=== PATIENT | male | born 1990 | race Caucasian/White ===

== ENCOUNTER 2022-07-16 09:26 | Emergency (ER) | payer OTHER, SELFPAY ==
[2022-07-16 09:27] VITALS: BP 116/78; PULSE 99; RESP 24; TEMP 36; O2SAT 100; BMI 35.4
[2022-07-16 09:32] VITALS: BP 116/78; PULSE 94; RESP 18; O2SAT 100
--- NOTE | 2022-07-16 09:52 | RAD_ITS ---
STUDY: X-RAY CHEST REASON FOR EXAM: Male, 31 years old. Sob TECHNIQUE: PA and lateral views of the chest. COMPARISON: None. FINDINGS: The lungs are clear and expanded. There is no demonstrated pleural abnormality. Normal size heart. Normal mediastinum and kiara. Normal visualized pulmonary arteries. Normal visualized aortic arch and descending thoracic aorta. Normal visualized thoracic spine. Normal visualized ribs, clavicles, and shoulders. There is no demonstrated abnormality of the visualized soft tissue structures of the upper abdomen. RAD/Chest PA and Lateral IMPRESSION: Normal x-ray examination of the chest. Electronically Signed: Alexandr Tavares MD at 10:56 EDT ,
[2022-07-16 10:07] LABS: Absolute Lymphocyte Count 2.87 X10^3/uL (0.83-4.51); Absolute Neutrophil Count 4.8 X10^3/uL (2.0-7.7); Basophil% 1.1 % (0-1); Eosinophil# 0.09 X10^3/uL; Hematocrit 50.7 % (40-54); Hemoglobin 16.3 g/dL (13.0-16.5); Lymphocyte # 2.87 X10^3/ul (0.83-4.51); Lymphocyte % 32.1 % (19-41); Mean Corp Hgb Conc 32.1 g/dL (32-36); Mean Corpuscular Hgb 28.6 pg (27.0-32.0); Mean Corpuscular Volume 88.9 fL (80-94); Mean Platelet Vol. 9.4 fl (6.2-12.0); Monocyte# 0.98 X10^3/uL; NRBC Flagged by Analyzer 0 % (0-5); Neutrophil # 4.78 X10^3/uL (2.7-7.7); Neutrophil % 53.6 % (47-70); Platelet Count 412 K/mm3 (150-450); RBC Distribution Width CV 11.9 % (11.6-14.6); RBC Distribution Width SD 39.2 fl (35.1-43.9); White Blood Count 8.9 K/mm3 (4.4-11.0)
[2022-07-16 10:23] LABS: Anion Gap 14 (5-15); BUN 9 mg/dL (7-18); BUN/Creat Ratio 8.2 RATIO (10-20); Calcium,Total 9.4 mg/dL (8.5-10.1); Chloride 102 mmol/L (98-107); EST Glomerular Filtration Rate 83 mL/min (>60); Est Glom Filt Rate - Afr Amer 101 mL/min (>60); Estimated Creatinine Clearance 101.39 ml/min; Glucose 88 mg/dL (74-106); Potassium 3.2 mmol/L (3.5-5.1); Sodium Level 139 mmol/L (136-145)
[2022-07-16 10:26] VITALS: BP 115/84; PULSE 84; RESP 16; O2SAT 100
--- NOTE | 2022-07-16 10:28 | EDS_ITS ---
HPI History of Present Illness Chief Complaint: Chest Pain Informant: patient Narrative Narrative: Patient is a 31-year-old male with history of anxiety (on paroxetine and alprazolam) since the murder of his brother a couple years ago. Patient was driving to work from [employer] today when he felt like he was developing a panic attack. He states he is on the phone with his mom for about 23 minutes. His mother felt that he was gasping for air and patient started having tingling in his hands. He states his hands turned red. His mother was also concerned because the patient could feel his heart beating and told him to chute puller and call 911. Patient states has had panic attacks in the past and this felt like 1. He also notes that he did not eat yesterday or today. Denies any family history of heart problems at a young age. Denies any difficulty breathing. States he is feeling better now. Notes he had a lot of pressure at work and there is been to recent firings and patient is concerned that he will be fired as well. Patient denies any other complaints at this time. Denies any swelling of his legs. Denies any recent travel immobilization. Is not on any hormonal therapy. Denies any history of DVT or PE. [facility] Medical History (Updated 07/16/22 @ 11:[address] Brigida Green DO) Anxiety Panic attack Allergy/AdvReac Type Severity Reaction Status Date / Time bee venom protein (honey bee) Allergy Hives Verified 07/16/22 09:26 [bee sting] Social History Smoking Status: Never smoker [facility] ED Constitutional Constitutional ED: Denies chills or fever(s) Eyes Eyes: Denies blurry vision or change in vision ENT ENT ED: Denies sore throat Cardiovascular Cardiovascular: Reports as per HPI and racing heartbeat; Denies chest pain Respiratory/Chest Respiratory/Chest: Reports dyspnea; Denies cough Gastrointestinal Gastrointestinal: Denies abdominal pain, nausea or vomiting Musculoskeletal Musculoskeletal: Denies arthralgias or myalgias Neurologic Neurologic: Reports paresthesias Psychiatric Psychiatric: Reports anxiety; Denies depression, suicidal ideation or suicidal thoughts Hematologic/Lymphatic Hematologic/Lymphatic: Denies easy bleeding or easy bruising EXAM Physical Exam Const Vital Signs: 07/16/22 09:27 07/16/22 09:32 07/16/22 09:32 Temperature 96.8 F L Temperature Source Temporal Pulse Rate 99 94 Respiratory Rate 24 H 18 Respiratory Effort Normal Blood Pressure 116/78 116/78 Blood Pressure Mean 90 90 Pulse Ox 100 100 Oxygen Delivery Method Room Air Room Air 07/16/22 10:26 Temperature Temperature Source Pulse Rate 84 Respiratory Rate 16 Respiratory Effort Blood Pressure 115/84 H Blood Pressure Mean 94 Pulse Ox 100 Oxygen Delivery Method Room Air Positive well nourished and well developed General Appearance ED: well developed and NAD HEENT Reports moist mucous membranes normocephalic and atraumatic Eyes PERRL and EOMs intact bilaterally Neck supple and no JVD Chest Wall inspection of chest normal and palpation of chest normal Resp normal respiratory effort and clear to auscultation bilaterally Cardio regular rate, regular rhythm and no murmurs GI normal to inspection, nondistended, normoactive bowel sounds, soft to palpation and non-tender Extremity normal to inspection General Extremety ED: Negative for edema or pulses abnormal General Extremity: Negative for edema or pulses abnormal Neuro oriented x3 Sensorium / Orientation: awake and alert Motor Exam: Negative for general weakness Psych mental status grossly normal Mood & Affect: anxious; Negative for depressed Skin no rashes or lesions noted and no wounds Skin Narrative: mild plethora of the hands bilaterally MDM MDM MDM Narrative Medical decision making narrative: Patient is evaluated for panic attack. Patient has what he describes as a pain attack while driving. He came to the ER because his mother states that he had gasping breath sounds and could feel his heartbeat so he should be evaluated. Patient admits to not taking his alprazolam last night or this morning. He said increased rest with work. He does not have any chest pain. I do not think this is ACS. EKG does not show any arrhythmia or signs of ischemia. Patient is PE RC negative I do not suspect a pulmonary emboli as a cause of his symptoms. I do not think he needs further work-up for this. I do not think this is a cardiac equivalent. I did check a CBC as he has plethora of his hands to make sure he does not have polycythemia. Chest x-ray does not show any pneumothorax. He is clear breath sounds bilaterally. Chest x-ray interpreted myself as well as radiology is largely normal. BMP checked to look for any significant electrolyte abnormalities. At this is largely normal. He is mildly hypokalemic with a potassium of 3.2 and is given a dose of oral potassium in the ER. He is given oral lorazepam in the emergency room as well. On repeat evaluation is feeling better. Patient remains hemodynamically stable in the ER. He has no further symptoms. Will be given a work note for today. Encouraged follow-up with his primary care doctor and take his regular psychiatric medications. Counseled if he has worsening symptoms, recurrent symptoms or further concerns to follow-up either with his primary care doctor return to his closest emergency room. Patient verbalizes agreement understand this plan. Discharged home in stable condition. Lab Data Labs: Laboratory Results - last 24 hr 07/16/22 07/16/22 09:30 09:30 WBC 8.9 RBC 5.70 Hgb 16.3 Hct 50.7 MCV 88.9 MCH 28.6 MCHC 32.1 RDW Std Deviation 39.2 RDW Coeff of Robinson 11.9 Plt Count 412 MPV 9.4 Immature Gran % (Auto) 1.200 H Neut % (Auto) 53.6 Lymph % (Auto) 32.1 [place] % (Auto) 11.0 H Eos % (Auto) 1.0 Baso % (Auto) 1.1 H Absolute Neuts (auto) 4.8 Absolute Lymphs (auto) 2.87 Nucleated RBC % 0 Sodium 139 Potassium 3.2 L Chloride 102 Carbon Dioxide 23.0 Anion Gap 14 BUN 9 Creatinine 1.10 Estim Creat Clear Calc 101.39 Est GFR (MDRD) Af Amer 101 Est GFR (MDRD) Non-Af 83 BUN/Creatinine Ratio 8.2 L Glucose 88 Calcium 9.4 Magnesium 2.0 Radiography Diagnostic Testing: Clinical Impression(s) from Imaging Studies Chest X-Ray 07/16/22 09:52 IMPRESSION: Normal x-ray examination of the chest. Electronically Signed: Alexandr Tavares MD at 10:56 EDT , Rhythm Strip Rhythm Strip: Sinus Rhythm Rate: 91 Ectopy: None EKG Initial EKG: Attestation: I personally reviewed and interpreted this EKG as follows: Interpretation: Sinus Rhythm Comments: Normal sinus rhythm at a rate of 91 bpm Normal axis Normal intervals Normal ST segments Differential Diagnosis Chest pain/SOB: pulmonary embolism Reason(s) PE less likely: Positive for PERC negative, ACS ACS: Positive for EKG without ischemia and history not suggestive of ischemia pain and pneumothorax Reason(s) pneumothorax less likely: Positive for bilateral breath sounds and [employer] withhout PTX Discharge Plan Triage Chief Complaint: Chest Pain ED Provider: Brigida Green Dx/Rx/DC Orders Clinical Impression: Panic attack, Hypokalemia Instructions: ED Hypokalemia, ED Panic Attack Stand Alone Forms: Work / School Excuse Primary Care Provider: Care Physician,No Primary Referrals: Care Physician,No Primary [Primary Care Provider] - Activity Restrictions/Additional Instructions: Your work-up was largely normal. Potassium was mildly low. You are given a one-time dose of potassium supplement. Please eat potassium rich foods such as bananas. Follow-up with your primary care doctor. Please take all of your regular medications as prescribed. I do not think you had any type of cardiac event or arrhythmia today. If you have worsening or recurrent symptoms please follow-up with your primary care doctor or return to the closest emergency room. Disposition Disposition: Home, Self Care
[2022-07-16] MEDS: LORazepam 0.5 MG Tablet PO (10:57)
[2022-07-16] MEDS: Potassium Chloride Oral Tablet 20 MEQ PO (10:57)
[2022-07-16 11:52] VITALS: BP 115/75; PULSE 87; RESP 115; O2SAT 96
== END 2022-07-16 11:53 | disposition home or self-care (01) ==
PROVIDERS: Emergency Provider Emergency Medicine; Visit Provider Emergency Medicine
DX: F41.0 Panic disorder [episodic paroxysmal anxiety] (principal); E87.6 Hypokalemia
CPT/HCPCS: 71046; 80048; 83735; 85025; 93005; 99285

== ENCOUNTER 2022-09-20 19:48 | Emergency (ER) | payer OTHER, SELFPAY ==
[2022-09-20 19:50] VITALS: BP 135/95; PULSE 121; RESP 18; TEMP 36.4; O2SAT 97; BMI 34.2
--- NOTE | 2022-09-20 20:04 | CT_ITS ---
EXAM: CT HEAD WITHOUT INTRAVENOUS CONTRAST CLINICAL INDICATION: seizure TECHNIQUE: Multiple axial images were obtained of the head without intravenous contrast. This CT exam was performed using one or more of the following dose reduction techniques: automated exposure control, adjustment of the mA and/or kV according to patient size, and/or use of iterative reconstruction technique. RADIATION DOSE: CTDIvol = 44.99 mGy, DLP = 762.36 mGy-cm COMPARISON: No relevant prior studies available. FINDINGS: BRAIN AND EXTRA-AXIAL SPACES: Unremarkable. No intra- or extra-axial hemorrhage. No evidence of acute infarct. No intracranial mass or mass effect. There is preservation of the puri/white matter interface. Posterior fossa structures are unremarkable. Ventricles are appropriate for age. No hydrocephalus. Basal cisterns are patent. BONES/JOINTS: Unremarkable. No discrete lytic or blastic abnormalities. SINUSES: Unremarkable as visualized. Clear. MASTOID AIR CELLS: Unremarkable. Clear. ORBITS: Visualized globes, extraocular muscles, optic nerves and retrobulbar fat appear unremarkable. CT/Brain/Head without Contrast IMPRESSION: Negative head/brain CT without intravenous contrast. Electronically Signed: Jose Serna MD at 20:52 EDT ,
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
[2022-09-20 20:48] LABS: Absolute Lymphocyte Count 3.29 X10^3/uL (0.83-4.51); Absolute Neutrophil Count 5.2 X10^3/uL (2.0-7.7); Hematocrit 46.3 % (40-54); Hemoglobin 14.9 g/dL (13.0-16.5); Lymphocyte # 3.29 X10^3/ul (0.83-4.51); Lymphocyte % 32.6 % (19-41); Mean Corp Hgb Conc 32.2 g/dL (32-36); Mean Corpuscular Hgb 28.2 pg (27.0-32.0); Mean Corpuscular Volume 87.5 fL (80-94); Mean Platelet Vol. 9.3 fl (6.2-12.0); Monocyte# 1.17 X10^3/uL; Monocyte% 11.6 % (0-10); NRBC Flagged by Analyzer 0 % (0-5); Neutrophil # 5.22 X10^3/uL (2.7-7.7); Neutrophil % 51.6 % (47-70); Platelet Count 473 K/mm3 (150-450); RBC Distribution Width CV 12.1 % (11.6-14.6); RBC Distribution Width SD 39.1 fl (35.1-43.9); Red Blood Count 5.29 M/mm3 (4.6-6.2); White Blood Count 10.1 K/mm3 (4.4-11.0)
[2022-09-20 21:06] LABS: Anion Gap 9 (5-15); BUN 9 mg/dL (7-18); BUN/Creat Ratio 10.9 RATIO (10-20); Calcium,Total 9.5 mg/dL (8.5-10.1); Chloride 104 mmol/L (98-107); Creatinine, Serum 0.83 mg/dL (0.70-1.30); EST Glomerular Filtration Rate 115 mL/min (>60); Est Glom Filt Rate - Afr Amer 140 mL/min (>60); Estimated Creatinine Clearance 134.37 ml/min; Glucose 101 mg/dL (74-106); Potassium 3.5 mmol/L (3.5-5.1); Sodium Level 138 mmol/L (136-145)
[2022-09-20 21:14] LABS: Amphetamine Urine VISTA NEGATIVE (<1000 ng/mL); Barbiturate Urine VISTA NEGATIVE (< 200 ng/mL); Benzodiazepine Urine VISTA POSITIVE (< 200 ng/mL); Cocaine Urine VISTA POSITIVE (< 300 ng/mL); Ecstacy Urine VISTA NEGATIVE (< 500 ng/mL); Methadone Urine VISTA NEGATIVE (< 300 ng/mL); PCP Urine VISTA NEGATIVE (< 25 ng/mL); THC Urine VISTA POSITIVE (< 50 ng/mL); Vista UDS pH Range 6
== END 2022-09-20 22:07 | disposition home or self-care (01) ==
PROVIDERS: Emergency Provider Emergency Medicine; Visit Provider Emergency Medicine
DX: R41.82 Altered mental status, unspecified (principal); F41.9 Anxiety disorder, unspecified; Z79.899 Other long term (current) drug therapy
CPT/HCPCS: 70450; 80048; 80307; 82077; 85025; 99283